=== PATIENT | male | born 2000 | race Caucasian/White ===

== ENCOUNTER 2020-06-08 19:18 | Emergency (ER) | payer OTHER ==
[2020-06-08] MEDS ORDERED: OXcarbazepine 150 MG TABLET PO STA (19:50)
--- NOTE | 2020-06-08 19:52 | ED Physician Documentation ---
History of Present Illness - Stated complaint Stated Complaint: MED REFILL - Chief complaint Chief Complaint: General - History obtained from History obtained from: Patient (He just moved here from [place], he is to be here for a couple of months. He has a seizure disorder which is well controlled on oxcarbazepine and is here requesting a refill. No acute complaints.) Review of Systems Constitutional: reports: Reviewed and negative Throat: reports: Reviewed and negative Cardiac: reports: Reviewed and negative PD PAST MEDICAL HISTORY - Past Medical History Past Medical History: Yes Neuro: Cerebral palsy, Seizure disorder, Other Other Past Medical History: Hydrocephalus; Epilepsy - Past Surgical History Past Surgical History: Yes Neuro: CARGO MATE shunt - Present Medications Home Medications: Ambulatory Orders Medication Instructions Recorded Confirmed OXcarbazepine [Trileptal] 300 mg PO QID #240 tablet 06/08/20 Oxcarbazepine [Trileptal] 300 mg PO TID 06/08/20 06/08/20 - Allergies Allergies/Adverse Reactions: Allergies Allergy/AdvReac Type Severity Reaction Status Date / Time phenobarbital Allergy Unknown Verified 06/08/20 19:30 - Social History Does the pt smoke?: No Smoking Status: Never smoker Does the pt drink ETOH?: Yes ETOH Use: Beer Does the pt have substance abuse?: No - Immunizations Immunizations are current?: Yes - POLST Patient has POLST: No PD ED PE NORMAL - Vitals Vital signs reviewed: Yes - General General: No acute distress, Well developed/nourished - Neuro Neuro: No motor deficit, No sensory deficit, Normal speech - Psych Psych: Normal mood, Normal affect Results - Vitals Vitals: Vital Signs - 24 hr 06/08/20 19:23 Temperature 36.3 C L Heart Rate 110 H Respiratory 17 Rate Blood Pressure 165/96 H O2 Saturation 99 Oxygen O2 Source Room air Departure - Departure Disposition: 01 Home, Self Care Clinical Impression: Epilepsy Qualifiers: Epilepsy type: unspecified Intractability: not intractable Status epilepticus: without status epilepticus Qualified Code(s): G40.909 - Epilepsy, unspecified, not intractable, without status epilepticus Condition: Good Record reviewed to determine appropriate education?: Yes Instructions: Epilepsy Dc Follow-Up: [facility] [Provider Group] Prescriptions: OXcarbazepine [Trileptal] 300 mg PO QID #240 tablet Comments: Call your doctor to arrange a follow-up appointment, make the next available appointment. In the interim, return anytime if worse or if new symptoms develop.
[2020-06-08 20:11] VITALS: BP 136/75
== END 2020-06-08 20:07 | disposition home or self-care (01) ==
LOC: ED 19:18
DX: G40.909 Epilepsy, unspecified, not intractable, without status epilepticus (principal); G80.9 Cerebral palsy, unspecified; Z76.0 Encounter for issue of repeat prescription
CPT/HCPCS: 99282; 99283

== ENCOUNTER 2020-08-13 15:03 | Emergency (ER) | payer MEDICARE, OTHER ==
--- NOTE | 2020-08-13 16:33 | ED Physician Documentation ---
History of Present Illness - Stated complaint Stated Complaint: MED REFILL - Chief complaint Chief Complaint: General - Additonal information Additional information: 19-year-old male who is visiting [facility] until September 16, 2020 comes to the emergency department requesting a refill of his carbamazepine. He does have a history of a seizure disorder. Because his physician in [place] cannot write a refill in [facility] he presents to the ER. He is requesting 1 month medication. States he takes 300 mg in the morning and evening and 600 mg at night. No recent seizure activity. No fevers. Review of Systems Constitutional: reports: Reviewed and negative Eyes: reports: Reviewed and negative Ears: reports: Reviewed and negative Nose: reports: Reviewed and negative Throat: reports: Reviewed and negative Cardiac: reports: Reviewed and negative Respiratory: reports: Reviewed and negative GI: reports: Reviewed and negative : reports: Reviewed and negative Skin: reports: Reviewed and negative Musculoskeletal: reports: Reviewed and negative PD PAST MEDICAL HISTORY - Past Medical History Cardiovascular: None Respiratory: None Neuro: Cerebral palsy, Seizure disorder, Other Endocrine/Autoimmune: None GI: None : None HEENT: None Psych: None Musculoskeletal: None Derm: None - Past Surgical History Past Surgical History: Yes Neuro: ENROLLMENT MANAGEMENT MANAGER shunt - Present Medications Home Medications: Ambulatory Orders Medication Instructions Recorded Confirmed OXcarbazepine [Trileptal] 300 mg PO QID #240 tablet 06/08/20 08/13/20 Oxcarbazepine [Trileptal] 300 mg PO TID #120 tablet 08/13/20 - Allergies Allergies/Adverse Reactions: Allergies Allergy/AdvReac Type Severity Reaction Status Date / Time phenobarbital Allergy Unknown Verified 08/13/20 15:06 - Social History Does the pt smoke?: No Smoking Status: Never smoker Does the pt drink ETOH?: Yes Does the pt have substance abuse?: No - Immunizations Immunizations are current?: Yes - POLST Patient has POLST: No PD ED PE NORMAL - General General: Alert and oriented X 3, No acute distress - HEENT HEENT: PERRL - Neck Neck: Supple, no meningeal sign - Cardiac Cardiac: RRR, No murmur - Respiratory Respiratory: Clear bilaterally - Abdomen Abdomen: Normal bowel sounds, Soft, Non tender, Non distended - Derm Derm: Warm and dry - Extremities Extremities: No deformity - Neuro Neuro: Alert and oriented X 3 Results - Vitals Vitals: Vital Signs - 24 hr 08/13/20 15:06 Temperature 36.1 C L Heart Rate 106 H Respiratory 18 Rate Blood Pressure 134/85 H O2 Saturation 97 Oxygen O2 Source Room air PD MEDICAL DECISION MAKING - ED course Complexity details: reviewed results, re-evaluated patient, considered differential, d/w patient ED course: 19-year-old male requesting a refill of his carbamazepine secondary to his history of seizure disorder. He is currently visiting [facility] from [place]. He will be here for 1 more month. I will write a refill for 1 month worth of medication. Advised further refills through primary provider. Kaitlyn mayer return precautions discussed Departure - Departure Disposition: 01 Home, Self Care Clinical Impression: Medication refill Condition: Stable Record reviewed to determine appropriate education?: Yes Prescriptions: Oxcarbazepine [Trileptal] 300 mg PO TID #120 tablet Comments: Bradycardia I have written for a refill of your Trileptal. The emergency department can only give 1 month worth of medication. You may need to return to [place] sooner.
[2020-08-13 16:46] VITALS: BP 126/88
== END 2020-08-13 16:44 | disposition home or self-care (01) ==
LOC: ED 15:03
DX: G40.909 Epilepsy, unspecified, not intractable, without status epilepticus (principal); Z76.0 Encounter for issue of repeat prescription; G80.9 Cerebral palsy, unspecified
CPT/HCPCS: 99281